=== PATIENT | male | born 1995 | race Caucasian/White ===

== ENCOUNTER 2017-02-05 00:48 | Emergency (ER) | payer BC ==
[2017-02-05] MEDS ORDERED: DiphenhydrAMINE 50 mg/ml Inj ONE (00:58)
[2017-02-05] MEDS ORDERED: DiphenhydrAMINE 50 mg/ml Inj IVP STA (01:04)
[2017-02-05] MEDS ORDERED: MethylPREDNISolone 40 mg Vial IVP STA (01:04)
[2017-02-05] MEDS ORDERED: Sodium Chloride 0.9% 1,000 ML IV ONE (01:10)
--- NOTE | 2017-02-05 01:28 | C.PDOC ---
History Of Present Illness Patient is a 22 year old male who presents to the ER with a complaint of facial and eye swelling after eating lobster for dinner. Patient has a known shrimp allergy. Denies SOB, difficulty swallowing or chest pain. Time Seen by Provider: 02/05/17 01:00 Chief Complaint (Nursing): Allergic Reaction History Per: Patient History/Exam Limitations: no limitations Onset/Duration Of Symptoms: Hrs Current Symptoms Are (Timing): Still Present Context: Food (Lobster) Possible Cause: Food (Lobster) Associated Symptoms: Swelling Home/EMS Treatment: None Recent travel outside of the [place]: No Past Medical History Reviewed: Historical Data, Nursing Documentation, Vital Signs Vital Signs: Last Vital Signs Temp 97.7 F 02/05/17 00:57 Pulse 99 H 02/05/17 00:57 Resp 24 02/05/17 00:57 BP 129/78 02/05/17 00:57 Pulse Ox - Medical History PMH: No Chronic Diseases Surgical History: No Surg Hx Family History: States: Unknown Family Hx - Social History Hx Alcohol Use: Yes Hx Substance Use: No - Immunization History Hx Tetanus Toxoid Vaccination: No Hx Influenza Vaccination: No Hx Pneumococcal Vaccination: No Review Of Systems Eyes: Positive for: Other (Swelling) ENT: Negative for: Throat Swelling Cardiovascular: Negative for: Chest Pain Respiratory: Negative for: Shortness of Breath Physical Exam - Physical Exam Appears: Non-toxic Skin: Warm, Dry, Rash Head: Atraumatic, Normacephalic Eye(s): bilateral: Other (Swollen) Oral Mucosa: Moist Throat: Normal, No Erythema, Other (Airway patent. No swelling) Neck: Normal, Supple Chest: Symmetrical, No Tenderness Cardiovascular: Rhythm Regular, No Murmur Respiratory: Normal Breath Sounds, No Rales, No Rhonchi, No Wheezing Gastrointestinal/Abdominal: Soft, No Tenderness Neurological/Psych: Oriented x3, Normal Speech, Normal Cognition ED Course And Treatment Progress Note: Benadryl, pepcid and solumedrol administered. Reevaluation Time: 02:21 Reassessment Condition: Improved (facial and eye swelling and edema much improved, rash resolved.) Critical Care Time - Critical Care Note Total Time (in mins): 90 Documented critical care: time excludes all time spent performing seperately billable procedures. Medical Decision Making Medical Decision Making: food allergy to lobster, already had allergy to shrimp educated and cautioned that allergic reactions worsten w re-exposures. Disposition Doctor Will See Patient In The: Office Counseled Patient/Family Regarding: Studies Performed, Diagnosis - Disposition Disposition: HOME/ ROUTINE Disposition Time: 02:22 Condition: GOOD - Clinical Impression Clinical Impression: Allergic reaction to food - Scribe Statement The provider has reviewed the documentation as recorded by the Scribjesus Sylvester All medical record entries made by the Justinoibjesus were at my direction and personally dictated by me. I have reviewed the chart and agree that the record accurately reflects my personal performance of the history, physical exam, medical decision making, and the department course for this patient. I have also personally directed, reviewed, and agree with the discharge instructions and disposition.
[2017-02-05 02:36] VITALS: BP 117/76; PULSE 81; RESP 18; TEMP 98.1; O2SAT 96
== END 2017-02-05 02:41 | disposition home or self-care (01) ==
LOC: C.ER 00:48
DX: T78.1XXA Other adverse food reactions, not elsewhere classified, initial encounter (principal); H57.8 Other specified disorders of eye and adnexa; X58.XXXA Exposure to other specified factors, initial encounter
CPT/HCPCS: 96361; 96374; 96375; 99284; J1200; J2920; J7040